=== PATIENT | male | born 1970 | race Caucasian/White ===

== ENCOUNTER → 2019-04-21 | Outpatient (CLI) | payer BC ==
[~2019-04-21] VITALS: Ht 180.3 cm; Wt 73.6 kg
[~2019-04-21] MED LIST: GADOBUTROL 7.5 MMOL/7.5 ML (GADAVIST) VIAL IV ONE; IOHEXOL 300 MG/ML 50 ML (OMNIPAQUE 300) VIAL IV ONE
--- NOTE | 2019-04-21 15:23 | Diagnostic Imaging Report ---
EXAMINATION: MRI of the right upper extremity with contrast, 04/21/2019. TECHNIQUE: Multiplanar, multisequence contrast-enhanced MRI of the right upper extremity was accomplished. INDICATION: Right shoulder pain for the last six months with no known injuries. FINDINGS: There is abnormal signal intensity within the intrasubstance of the subscapularis tendon along its cranial-most aspect, likely a small partial intrasubstance tear. The adjacent proximal-most extracapsular long head of the biceps tendon is slightly medially subluxed but not dislocated. The tendon is prominent likely due to tendinosis. Biceps tendon anchor appears intact. The supraspinatus tendon demonstrates abnormal signal intensity along its anterior aspect. This appears to predominantly represent a deep partial-thickness articular-sided tear. Far anteriorly, however, especially on coronal images 17 through 18, there is hyperintensity immediately anterior to the greater tuberosity and a small amount of contrast extravasating from the joint through a very tiny full-thickness tear difficult to exclude. No retraction, however, is appreciated. More posteriorly, an articular-sided tear of the remaining supraspinatus and portions of the infraspinatus tendon noted, well seen on the coronal T1 fat-saturated sequence. The labrum appears to be intact with mild degenerative signal in the superior labrum. No displaced tear is appreciated. There is degenerative change at the acromioclavicular joint with narrowing and spurring present. There is a small amount of edema at the joint space as well. Muscle volume is well preserved. Visualized axilla is unremarkable. IMPRESSION: 1. Deep partial articular-sided tear of the portions of the infraspinatus and much of the supraspinatus tendon. A tiny full-thickness extension to far anterior supraspinatus tendon difficult to completely exclude as described above. 2. Small partial tear of the cranial fibers of the subscapularis tendon with mild medial subluxation of the adjacent biceps tendon. 3. Biceps tendinosis. Other findings as above. Dictated by: Dictated on workstation # [id number]
--- NOTE | 2019-04-21 15:31 | Diagnostic Imaging Report ---
INDICATION: Right shoulder pain. PROCEDURE: Patient was brought to the procedure room and placed on table in the supine position. Skin over the right shoulder was prepped and draped in the usual sterile fashion. A small amount of 1% lidocaine was utilized for local anesthesia. 21-gauge needle was advanced to the right shoulder rotator interval. 15 mL solution of iodinated contrast, normal saline and gadolinium was injected under fluoroscopic observation. Needle was withdrawn and hemostasis was obtained. Patient tolerated the procedure well and was sent to MRI in satisfactory condition. A total of 12 seconds of fluoroscopic time was utilized. IMPRESSION: Successful right shoulder injection of gadolinium contrast solution, using fluoroscopy. Dictated by: Dictated on workstation # [id number]
== END ==
LOC: RAD 13:32
PROVIDERS: ATTEND Orthopaedic Surgery
DX: S43.431A Superior glenoid labrum lesion of right shoulder, initial encounter (principal); M75.21 Bicipital tendinitis, right shoulder; S43.001A Unspecified subluxation of right shoulder joint, initial encounter; S46.911A Strain of unspecified muscle, fascia and tendon at shoulder and upper arm level, right arm, initial encounter; M75.111 Incomplete rotator cuff tear or rupture of right shoulder, not specified as traumatic; X58.XXXA Exposure to other specified factors, initial encounter
CPT/HCPCS: 23350; 73040; 73219